=== PATIENT | male | born 1980 | race Caucasian/White ===

== ENCOUNTER 2021-12-10 07:18 | Emergency (ER) | payer OTHER ==
[2021-12-10 08:59] LABS: BILIRUBIN NEGATIVE (NEGATIVE); BLOOD 3+ Ery/uL (NEGATIVE); CLARITY CLEAR (CLEAR); COLOR YELLOW (YELLOW); GLUCOSE (U) NORMAL (NORMAL); LEUKOCYTES NEGATIVE Leu/uL (NEGATIVE); NITRITE NEGATIVE (NEGATIVE); PROTEIN TRACE (LOW) mg/dL (NEGATIVE); SPECIFIC GRAVITY >=1.030 (1.001-1.030)
[2021-12-10 09:10] LABS: BACTERIA TRACE; CALCIUM OXALATE CRYSTALS MODERATE; SQUAMOUS EPITHELIAL CELLS RARE; URINARY RBC 20-50; URINARY WBC RARE
[2021-12-10 11:00] LABS: BUN/CREAT RATIO (CALC) 8.2 RATIO; CREATININE 1.46 mg/dL (0.67-1.17); POTASSIUM 4.5 mmol/L (3.5-5.1)
[2021-12-10 11:05] LABS: BASOPHIL 0.4 % (0-2); EOSINOPHIL 0.5 % (0-5); HCT 46.4 % (42.0-52.0); HGB 14.8 g/dl (13.2-18.0); LYMPHOCYTE 19.9 % (15-48); MCH 26.4 pg (25.0-31.0); MCHC 31.9 g/dL (32.0-36.0); MCV 82.7 fL (78.0-100.0); MONOCYTE 8.5 % (0-12); MPV 10.8 fL (6.0-9.5); NEUTROPHIL 70.3 % (41-80); NRBC 0; PLT 186 K/uL (150-400); RBC 5.61 M/uL (4.70-6.00); WBC 9.9 K/uL (4.0-10.5)
[2021-12-10] MEDS ORDERED: ONDANSETRON ODT4 MG PO (11:29)
[2021-12-10] MEDS ORDERED: NORCO 5-325 TA1 EACH PO (11:29)
== END 2021-12-10 11:37 | disposition home or self-care (01) ==
LOC: FER 07:18
PROVIDERS: Emergency Medicine
DX: N13.2 Hydronephrosis with renal and ureteral calculous obstruction (principal); Z28.310 Unvaccinated for COVID-19
CPT/HCPCS: 36415; 72131; 80048; 81001; 85025; J1885; J7030